=== PATIENT | female | born 1975 | race Caucasian/White ===

== ENCOUNTER 2018-08-18 18:28 | Emergency (ER) | payer OTHER ==
[~2018-08-18] VITALS: Ht 157.5 cm; Wt 64.0 kg
[2018-08-18 19:16] VITALS: BP_SYST 136
--- NOTE | 2018-08-18 19:19 | NUR ---
Pt placed to ER waiting room in stable condition.
--- NOTE | 2018-08-18 20:10 | NUR ---
Pt placed to ER bed 08. Report given to JERRI Arias.
--- NOTE | 2018-08-18 20:15 | NUR ---
Patient to ER via triage with multiple complaints of pressure headache, rash off and on, fatigue, and sore neck x 3 days. No reported trauma/injury, patient able to ambulate without difficulty with slow, steady gait. Patient is awake, alert and oriented in no acute distress, vital signs stable, respirations even and unlabored, skin warm and dry to touch. Awaiting evaluation by ER MD/[employer], will continue to observe and assess.
--- NOTE | 2018-08-18 21:35 | NUR ---
ER at bedside examining patient.
--- NOTE | 2018-08-18 22:00 | NUR ---
X-RAY AT BEDSIDE FOR FILMS.
[2018-08-18 22:18] LABS: HEMATOCRIT 39.2 % (36-48); HEMOGLOBIN 12.8 g/dL (12.0-16.0); MEAN CORPUSCULAR HEMOGLOBIN 32 pg (27-31); MEAN CORPUSCULAR HGB CONC 33 % (32-36); MEAN CORPUSCULAR VOLUME 97 fL (79.0-98.0); PLATELET COUNT (AUTO) 398 K/uL (130-430); RED BLOOD CELL COUNT(AUTO) 4.04 MIL/uL (4.2-6.2); RED CELL DISTRIBUTION WIDTH 11.9 % (9.0-15.0); WHITE BLOOD COUNT (AUTO) 6.2 K/uL (4.8-10.8)
[2018-08-18 22:32] LABS: CALCIUM 9.6 mg/dL (8.4-11.0); CREATININE 1.14 mg/dL (0.55-1.30); POTASSIUM 3.8 mmol/L (3.5-5.1)
[2018-08-18 22:37] LABS: ALBUMIN 4.1 g/dL (3.4-4.8); TOTAL BILIRUBIN 0.6 mg/dL (0.0-1.0)
[2018-08-18 22:38] LABS: BILIRUBIN,URINE NEGATIVE (NEGATIVE); BLOOD, URINE 3+ (NEGATIVE); CLARITY/URINE SL HAZY (CLEAR); COLOR,URINE YELLOW (YELLOW); GLUCOSE,URINE NEGATIVE (NEGATIVE); KETONES,URINE NEGATIVE (NEGATIVE); LEUKOCYTE ESTERASE ,URINE NEGATIVE (NEGATIVE); NITRITE, URINE NEGATIVE (NEGATIVE); PH,URINE 5.5 (5.0-8.0); PROTEIN URINE NEGATIVE (NEGATIVE); UROBILINOGEN,URINE 0.2 (0.2-1.0)
[2018-08-18 22:39] LABS: PROTHROMBIN TIME 10.1 SECS (9.5-12.5)
--- NOTE | 2018-08-18 23:00 | NUR ---
Patient resting quietly in no acute distress, awaiting results and dispo.
[2018-08-18 23:01] LABS: BACTERIA,URINE MODERATE /HPF (None Seen); RBC,URINE 20-50 /HPF (0-3)
[2018-08-18 23:02] LABS: MUCUS,URINE 2+ /LPF (None Seen)
[2018-08-18 23:08] LABS: BASOPHILS % (MANUAL) 0 % (0-2); EOSINOPHILS % (MANUAL) 8 % (0-7); LYMPHOCYTES % (MANUAL) 17 % (20-46); MONOCYTES % (MANUAL) 6 % (0-11)
[2018-08-18 23:37] LABS: ERYTHROCYTE SEDIMENTATION RATE 28 MM/HR (0-20)
--- NOTE | 2018-08-19 | NUR ---
Patient up ambulating about room without difficulty with slow, steady gait. Dispo pending.
--- NOTE | 2018-08-19 00:50 | NUR ---
Dr Goncalves at bedside speaking with patient regarding results and plan of care, questions answered by Dr Goncalves. Awaiting dispo.
[2018-08-19 01:30] VITALS: BP_SYST 116
--- NOTE | 2018-08-19 01:30 | NUR ---
Patient given written and verbal discharge instructions and verbalizes understanding. ER MD discussed with patient the results and treatment provided. Patient in stable condition. ID arm band removed. No RX given. Patient educated on pain management and to follow up with PMD. Pain Scale 0. Opportunity for questions provided and answered. Medication side effect fact sheet provided. Patient left ER in no acute distress, patient able to ambulate without difficulty with slow, steady gait with friend at her side.
== END 2018-08-19 01:30 | disposition home or self-care (01) ==
LOC: SED 18:28
DX: M25.542 Pain in joints of left hand (principal); M25.541 Pain in joints of right hand; R70.0 Elevated erythrocyte sedimentation rate; R50.9 Fever, unspecified; R21 Rash and other nonspecific skin eruption; R03.0 Elevated blood-pressure reading, without diagnosis of hypertension
CPT/HCPCS: 36415; 71045; 80053; 81000-TC; 81025; 83605; 85007; 85027; 85610-TC; 85651-TC; 85730-TC; 86710; 87040-TC; 87086; 99285